=== PATIENT | male | born 1990 | race Hispanic/Latino ===

== ENCOUNTER 2017-12-17 17:27 | Inpatient (IN) | payer MEDICAID ==
[2017-12-17 17:35] VITALS: BMI 24.0
[2017-12-17 18:48] LABS: URINE BACTERIA OCC (<OCC); URINE BILIRUBIN NEGATIVE (NEGATIVE); URINE BLOOD 3+ (NEGATIVE); URINE CLARITY Clear (Clear); URINE COLOR Yellow (YELLOW); URINE GLUCOSE (UA) NORMAL (Normal); URINE LEUKOCYTE ESTERASE NEG Leu/uL (Negative); URINE PROTEIN NEGATIVE (NEGATIVE); URINE UROBILINOGEN NORMAL mg/dL (0.2-1.0)
[2017-12-17 18:53] LABS: BASO # 0.1 K/uL (0.0-0.2); BASO % 0.5 % (0.0-2.0); EOS # 0.2 K/uL (0.0-0.7); EOS % 1.5 % (0.0-4.0); HEMOGLOBIN 13.1 g/dL (12.0-18.0); LYMPH # 1.6 K/uL (1.0-4.3); LYMPH % 12.6 % (20.0-40.0); MEAN CELL VOLUME 96.5 fL (80.0-94.0); MEAN CORPUSCULAR HGB CONC 35.2 g/dL (33.0-37.0); MEAN PLATELET VOLUME 7.3 fL (7.2-11.7); MONO % 7.9 % (0.0-10.0); NEUT % 77.5 % (50.0-75.0); RBC 3.87 Mil/uL (4.40-5.90); RED CELL DISTRIBUTION WIDTH 12.6 % (11.5-14.5)
[2017-12-17 19:05] LABS: BARBITURATES, UR NEGATIVE (NEGATIVE); BENZODIAZEPINES, UR NEGATIVE (NEGATIVE); PHENCYCLIDINE, UR NEGATIVE (NEGATIVE)
[2017-12-17 19:07] LABS: OPIATES, UR POSITIVE (NEGATIVE)
[2017-12-17 19:14] LABS: ALB/GLOB RATIO 1.3 (1.0-2.1); ALBUMIN 4.2 g/dL (3.5-5.0); ALT/SGPT 125 U/L (21-72); AST/SGOT 343 U/L (17-59); BLOOD UREA NITROGEN 22 mg/dL (9-20); CALCIUM 8.9 mg/dl (8.6-10.4); GFR AFRICAN-AMERICAN > 60; GFR NON-AFRICAN AMERICAN > 60
--- NOTE | 2017-12-17 19:37 | C.PDOC ---
History Of Present Illness Pt is here requesting detox from Heroin. Time Seen by Provider: 12/17/17 18:07 Chief Complaint (Nursing): Substance Abuse History Per: Patient, Family Onset/Duration Of Symptoms: Days Current Symptoms Are (Timing): Still Present Suicide/Self Injury Attempted (Context): None Modifying Factor(s): Narcotics, Crack Associated Symptoms: denies: Suicidal Thoughts, Suicidal Plan Additional History Per: Prior Records Past Medical History Reviewed: Historical Data, Nursing Documentation, Vital Signs Vital Signs: Last Vital Signs Temp 97.9 F 12/17/17 17:39 Pulse 100 H 12/17/17 17:39 Resp 20 12/17/17 17:39 BP 117/84 12/17/17 17:39 Pulse Ox 95 12/17/17 19:38 - Medical History PMH: Bipolar Disorder Other PMH: Dissociative Identity Disorder Family History: States: Unknown Family Hx - Social History Hx Alcohol Use: No Hx Substance Use: Yes (Snorts Heroin and Smokes Crack Cocaine) - Immunization History Hx Tetanus Toxoid Vaccination: No Hx Influenza Vaccination: No Hx Pneumococcal Vaccination: No Review Of Systems Except As Marked, All Systems Reviewed And Found Negative. Constitutional: Negative for: Fever, Weakness Cardiovascular: Negative for: Chest Pain Respiratory: Negative for: Cough, Shortness of Breath Gastrointestinal: Negative for: Vomiting, Abdominal Pain Genitourinary: Negative for: Dysuria Musculoskeletal: Positive for: Back Pain. Negative for: Neck Pain Skin: Negative for: Rash Neurological: Negative for: Weakness, Numbness, Seizures Physical Exam - Physical Exam Appears: Non-toxic, No Acute Distress Skin: Normal Color, Warm, Dry Head: Atraumatic, Normacephalic Eye(s): bilateral: Normal Inspection, PERRL, EOMI Neck: Normal ROM, Supple Cardiovascular: Rhythm Regular Respiratory: Normal Breath Sounds, No Accessory Muscle Use Gastrointestinal/Abdominal: Soft, No Tenderness Extremity: Normal ROM Neurological/Psych: Oriented x3, Normal Motor, Normal Sensation ED Course And Treatment - Laboratory Results Result Diagrams: 12/17/17 18:45 12/17/17 18:45 Interpretation Of Abnormal: Mildly abnormal LFTs. O2 Sat by Pulse Oximetry: 95 Pulse Ox Interpretation: Normal Progress Note: Patient is medically stable for detox admission. Disposition Counseled Patient/Family Regarding: Studies Performed, Diagnosis - Disposition Disposition: HOSPITALIZED Disposition Time: 19:42 Condition: STABLE - Clinical Impression Clinical Impression: Opioid dependence, Dissociative identity disorder Decision To Admit - Pt Status Changed To: Hospital Disposition Of: Inpatient - Admit Certification Admit to Inpatient:: After my assessment, the patient will require hospitalization for at least two midnights. This is because of the severity of symptoms shown, intensity of services needed, and/or the medical risk in this patient being treated as an outpatient. - InPatient: Physician Admission Certification: I certify that this patient requires 2 or more midnights of care for the following reason:: Detox. - . Bed Request Type: Detox Admitting Physician: Jason Figueredo Patient Diagnosis: Opioid dependence, Dissociative identity disorder
--- NOTE | 2017-12-17 20:04 | PCM.BM ---
<Shayla Kenney - Last Filed: 12/17/17 20:03> Treatment Plan Problems - Problems identified on initial assessmt potiential for opiate withdrawal Date Initiated: 12/17/17 Time Initiated: 20:03 Assessment reference: NA Status: Active Treatment assets and liabiliti Patient Assests: ADL independent, cognitively intact Patient Liabilities: substance abuse, medical problems - Milieu Protocol Maintain good personal hygiene: daily Encourage regular showers, daily Remind patient to perform daily oral care, daily Assist patient to perform ADL's Maintain personal safety: every shift Educate patient to report safety concerns to staff, every shift Monitor environment for contraband/sharps Medication safety: Monitor for expected outcome, potential side effects: every shift, Assess barriers to learning: every shift, Assess readiness for medication education: every shift <Jason Figueredo - Last Filed: 12/22/17 19:36> - Diagnosis (1) Opioid use disorder, severe, dependence Status: Acute Interventions: 12/22/17 19:33 Assess 7x/week regarding severity of withdrawal * Educate regarding risks, benefits, side effects and alternatives of medications * Use Motivational Interviewing for abstinence * Use CBT for relapse prevention * Medication management for withdrawal symptoms * Encourage medication assisted treatment (2) Cocaine use disorder, severe, dependence Status: Acute Interventions: 12/22/17 19:34 Assess 7x/week regarding severity of withdrawal * Educate regarding risks, benefits, side effects and alternatives of medications * Use Motivational Interviewing for abstinence * Use CBT for relapse prevention * Medication management for withdrawal symptoms * Encourage medication assisted treatment (3) Cannabis use disorder, severe, in early remission Status: Acute Interventions: 12/22/17 19:34 Assess 7x/week regarding severity of withdrawal * Educate regarding risks, benefits, side effects and alternatives of medications * Use Motivational Interviewing for abstinence * Use CBT for relapse prevention * Medication management for withdrawal symptoms * Encourage medication assisted treatment (4) Major depressive disorder, recurrent, severe with psychotic features Status: Acute Interventions: 12/22/17 19:36 * Assess/adjust medications daily and /or as needed * See patient on an individual basis 7x/week to assess symptoms of depression * Monitor for side effects & effectiveness of medications
[2017-12-17] MEDS ORDERED: Buprenorphine Hydrochloride 2 mg SL ONE ×2 (21:15)
[2017-12-18] MEDS ORDERED: Aluminum Hydroxide/Magnesium Hydroxide Susp (30 mL) PO PRN (00:23)
[2017-12-18] MEDS: Buprenorphine Hydrochloride 2 mg SL SCH (10:16)
[2017-12-18] MEDS: Pantoprazole 20 mg EC Tab PO SCH (13:05)
[2017-12-18] MEDS: buPROPion 150 mg/24 Hours XL Tab PO SCH (13:05)
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
[2017-12-19] MEDS: Buprenorphine Hydrochloride 2 mg SL SCH (09:35)
[2017-12-19] MEDS: Pantoprazole 20 mg EC Tab PO SCH (09:35)
[2017-12-19] MEDS: buPROPion 150 mg/24 Hours XL Tab PO SCH (09:35)
--- NOTE | 2017-12-19 15:32 | PCM.PYCHPN ---
Psychiatric Progress Note - Psychiatric Progress Note Patient seen today, length of contact: 15 Minutes Patient Chief Complaint: I'm feeling better Problems Identified/Issues Discussed: Patient seen, chart reviewed, case discussed with staff. Issues related to illness and treatment were discussed with the patient. Reported compliant with treatment with no adverse affects. Tolerating treatment very well. Reported feeling better. Aftercare discussed with the patient. At the time of evaluation, patient was awake alert oriented 3, had no delusions , no auditory or visual hallucinations, no suicidal ideations or homicidal ideations. Medical Problems: None reported Diagnostic Results: Reviewed DSM 5 Symptoms Update: Some improvement with treatment Medication Change: No Medical Record Reviewed: Yes Mental Status Examination - Cognitive Function Orientation: Person, Place, Situation, Time Memory: Intact Attention: WNL Concentration: WNL Association: WN Fund of Knowledge: [facility] Decription of patient's judgement and insights: Fair - Mood Mood: Depressed (Less than before) - Affect Affect: Depressed - Speech Speech: Appropriate - Formal Thought Process Formal Thought Process: No Impairment Psychotic Thoughts and Behaviors: None - Suicidal Ideation Suicidal Ideation: No - Homicidal Ideation Homicidal Ideation: No Goal/Treatment Plan - Goal/Treatment Plan Need for Continued Stay: Remain at risks for inpatient hospitalization, Discharge may exacerbated symptoms, Severe functional impairment Progress Toward Problem(s) and Goals/Treatment Plan: Improving with treatment. Patient education. Supportive therapy. CBT for relapse prevention. [place] for abstinence. Continue treatment as before Estimated Date of D/C: 12/21/17 - Smoking Cessation Smoking Cessation Initiated: No Reason for not providing: Patient refused
[2017-12-19] MEDS ORDERED: Bisacodyl 5mg EC Tab PO ONE (19:00)
[2017-12-20] MEDS: Pantoprazole 20 mg EC Tab PO SCH (09:08)
[2017-12-20] MEDS: Buprenorphine Hydrochloride 2 mg SL SCH (09:08)
[2017-12-20] MEDS: buPROPion 150 mg/24 Hours XL Tab PO SCH (09:08)
--- NOTE | 2017-12-20 19:46 | PCM.PYCHPN ---
Psychiatric Progress Note - Psychiatric Progress Note Patient seen today, length of contact: 15 Minutes Patient Chief Complaint: I'm feeling much better Problems Identified/Issues Discussed: Patient seen, chart reviewed, case discussed with staff. Issues related to illness and treatment were discussed with the patient. Reported compliant with treatment with no adverse affects. Tolerating treatment very well. Reported feeling better. Aftercare discussed with the patient. At the time of evaluation, patient was awake alert oriented 3, had no delusions , no auditory or visual hallucinations, no suicidal ideations or homicidal ideations. Medical Problems: None reported Diagnostic Results: Reviewed DSM 5 Symptoms Update: Improving with treatment Medication Change: No Medical Record Reviewed: Yes Mental Status Examination - Cognitive Function Orientation: Person, Place, Situation, Time Memory: Intact Attention: WNL Concentration: WNL Association: WN Fund of Knowledge: [facility] Decription of patient's judgement and insights: Fair - Mood Mood: Neutral - Affect Affect: Other (Appropriate) - Speech Speech: Appropriate - Formal Thought Process Formal Thought Process: No Impairment Psychotic Thoughts and Behaviors: None - Suicidal Ideation Suicidal Ideation: No - Homicidal Ideation Homicidal Ideation: No Goal/Treatment Plan - Goal/Treatment Plan Need for Continued Stay: Remain at risks for inpatient hospitalization, Discharge may exacerbated symptoms, Severe functional impairment Progress Toward Problem(s) and Goals/Treatment Plan: Improving with treatment. Patient education. Supportive therapy. CBT for relapse prevention. SD for abstinence. Continue treatment as before Estimated Date of D/C: 12/21/17 - Smoking Cessation Smoking Cessation Initiated: No Reason for not providing: Patient refused
[2017-12-20] MEDS: Aritificial Tears (15ml) OU PRN (20:51)
[2017-12-21] MEDS: Pantoprazole 20 mg EC Tab PO SCH (09:40)
[2017-12-21] MEDS: Buprenorphine Hydrochloride 2 mg SL SCH (09:40)
[2017-12-21] MEDS: buPROPion 150 mg/24 Hours XL Tab PO SCH (09:40)
[2017-12-21] MEDS: Aritificial Tears (15ml) OU PRN (16:29)
[2017-12-21 17:56] VITALS: O2SAT 97
[2017-12-21] MEDS ORDERED: Magnesium Hydroxide Susp 30 ml UD PO ONE (19:35)
--- NOTE | 2017-12-21 20:39 | PCM.PYCHPN ---
Psychiatric Progress Note - Psychiatric Progress Note Patient seen today, length of contact: 15 Minutes Patient Chief Complaint: I'm feeling much better Problems Identified/Issues Discussed: Patient seen, chart reviewed, case discussed with staff. Issues related to illness and treatment were discussed with the patient. Reported compliant with treatment with no adverse affects. Tolerating treatment very well. Reported feeling better. Aftercare discussed with the patient. At the time of evaluation, patient was awake alert oriented 3, had no delusions , no auditory or visual hallucinations, no suicidal ideations or homicidal ideations. Medical Problems: None reported Diagnostic Results: Reviewed DSM 5 Symptoms Update: Improving with treatment Medication Change: No Medical Record Reviewed: Yes Mental Status Examination - Cognitive Function Orientation: Person, Place, Situation, Time Memory: Intact Attention: WNL Concentration: WNL Association: WN Fund of Knowledge: [facility] Decription of patient's judgement and insights: Fair - Mood Mood: Neutral - Affect Affect: Other (Appropriate) - Speech Speech: Appropriate - Formal Thought Process Formal Thought Process: No Impairment Psychotic Thoughts and Behaviors: None - Suicidal Ideation Suicidal Ideation: No - Homicidal Ideation Homicidal Ideation: No Goal/Treatment Plan - Goal/Treatment Plan Need for Continued Stay: Remain at risks for inpatient hospitalization, Discharge may exacerbated symptoms, Severe functional impairment Progress Toward Problem(s) and Goals/Treatment Plan: Improving with treatment. Patient education. Supportive therapy. CBT for relapse prevention. [place] for abstinence. Continue treatment as before Estimated Date of D/C: 12/21/17 - Smoking Cessation Smoking Cessation Initiated: No
[2017-12-22 06:36] VITALS: RESP 18
[2017-12-22] MEDS: Pantoprazole 20 mg EC Tab PO SCH (09:32)
[2017-12-22] MEDS: buPROPion 150 mg/24 Hours XL Tab PO SCH (09:32)
[2017-12-22 10:19] VITALS: BP 122/82; PULSE 87; TEMP 98.3
--- NOTE | 2017-12-22 19:39 | PCM.PYCHDC ---
Mental Status Examination - Mental Status Examination Orientation: Person, Place, Situation, Time Memory: Intact Mood: Neutral Affect: Other (Appropriate) Speech: Appropriate Attention: WNL Concentration: WNL Association: WNL Fund of Knowledge: WNL Formal Thought Process: No Impairment Description of patient's judgement and insight: Fair Psychotic Thoughts and Behaviors: None Suicidal Ideation: No Current Homicidal Ideation?: No Discharge Summary - Discharge Note Reason for Hospitalization: Opiate use disorder severe Cocaine use disorder severe Cannabis use disorder severe in early remission Major depressive disorder recurrent severe with psychotic features Laboratory Data: Reviewed Consultations:: List each consultation separately and include: 1. Reason for request. 2. Findings. 3. Follow-up Summary of Hospital Course include:: 1. Description of specific treatment plan utilized for patients during their course of treatmen. 2. Summarize the time- course for resolution of acute symptoms and/or regressed behaviors. 3. Describe issues identified and worked on during hospitalization. 4. Describe medication utilized. 5. Describe medical problems identified and treated. 6. Reassessment of suicide risk Summary of Hospital Course: Patient is a 27 years old, single, unemployed for last 1 month with history of major depressive disorder, opiate use disorder, cocaine use disorder was admitted for the treatment of withdrawing from heroine and cocaine. Patient reported he has history of depression for last many years, and is getting treatment from his psychiatrist Dr. Hutchins. Patient reported he is getting Invega Sustenna 117 mg, next due in 2 weeks, Topamax 50 mg daily, Cogentin 2 mg daily, Remeron 15 mg at bedtime and omeprazole 20 mg daily. Patient reported less depression with the treatment. Denied any problem with sleep or appetite. Denied any suicidal ideations or homicidal ideations. History of one previous suicidal attempt at 17 years of age by cutting on wrist , was not admitted. Patient reported having auditory visual hallucinations and delusions. He reported he sees a little black man who talks to him when he is alone and makes him Amada. Also reported that when he sees any helicopter he thinks that the helicopter is following him. He has these symptoms when he is out of medications. Currently feeling better with the medications. History of about 10 admissions. Last admission 1 year ago in [place]. Denied any manic or anxiety symptoms. Patient reported sometime he has 2 personalities good personality and the other one his teenage personality. The good personality ProTect same and his name is Gumaro nunes wouldn't come out since August 2017. The teenage personality likes democrat. His name is MARY LOU and comes twice a week. Heroine: Started at 14 years of age, increased gradually to 10 bags daily, snorting. Last used yesterday morning. Longest period of abstinence was 3 months at 23 years of age. History of one rehabilitation in the past. Cocaine: Started one year ago, uses half gram daily. Last use was yesterday morning. Cannabis: Patient started using cannabis at 11 years of age, was using daily, 1 g daily. Last used in August 2017. Also drinks alcohol socially. He smokes half pack of cigarettes daily and refusing nicotine patch. Patient was arrested 3 times for drug charges and disorderly conduct. Patient was born in [place] has some college education. Patient is not working for last 1 month. 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 Never and has no children. He lives with the parents. His height is 5 feet 9 inches and weight is 165 pounds. During his stay in the hospital patient was treated with buprenorphine for opiate withdrawal symptoms and other when necessary medications. Patient was attending groups and other activities on the unit. With the above treatment patient started feeling better, had no withdrawal symptoms. Today patient was stable and was ready to discharge. At the time of evaluation and discharge, patient was awake alert oriented 3, had no delusions, no auditory or visual hallucinations, no suicidal ideations or homicidal ideations,. Patient was discharged in a stable condition. - Diagnosis (1) Opioid use disorder, severe, dependence Status: Acute (2) Cocaine use disorder, severe, dependence Status: Acute (3) Cannabis use disorder, severe, in early remission Status: Acute (4) Major depressive disorder, recurrent, severe with psychotic features Status: Acute - Final Diagnosis (DSM 5) Condition upon Discharge: STABLE Disposition: HOME/ ROUTINE Follow-up Treatment Plan: Patient will go to [place] for follow-up care after discharge from the hospital for follow-up care. Prescriptions/Medication Reconciliation: buPROPion XL [Wellbutrin XL] 300 mg PO DAILY #30 t24 Mirtazapine [Remeron] 15 mg PO HS #30 tab Pantoprazole [Protonix EC Tab] 20 mg PO DAILY #30 ect Topiramate [Topamax] 50 mg PO DAILY #30 tab - Smoking Cessation Smoking Cessation Medication prescribed: No - Antipsychotic Medications Pt discharged on 2 or more routine antipsychotic medications: No
== END 2017-12-22 11:45 | disposition home or self-care (01) | DRG 744 ==
LOC: C.ER 17:27 → C.7D 19:43
PROC: HZ2ZZZZ Detoxification Services for Substance Abuse Treatment (ICD-10-PCS; principal; 2017-12-17)
PROC: HZ59ZZZ Individual Psychotherapy for Substance Abuse Treatment, Supportive (ICD-10-PCS; 2017-12-17)
PROC: HZ46ZZZ Group Counseling for Substance Abuse Treatment, Psychoeducation (ICD-10-PCS; 2017-12-17)
PROC: GZ3ZZZZ Medication Management (ICD-10-PCS; 2017-12-17)
DX: F11.23 Opioid dependence with withdrawal (principal); F33.3 Major depressive disorder, recurrent, severe with psychotic symptoms; F12.21 Cannabis dependence, in remission; F14.20 Cocaine dependence, uncomplicated; F17.210 Nicotine dependence, cigarettes, uncomplicated; F44.81 Dissociative identity disorder; Z81.8 Family history of other mental and behavioral disorders; Z91.410 Personal history of adult physical and sexual abuse